=== PATIENT | female | born 1955 | race Caucasian/White ===

== ENCOUNTER 2019-04-13 09:41 | Emergency (ER) | payer OTHER ==
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
[2019-04-13 10:02] VITALS: BP 143/71; PULSE 80; TEMP 97.9; BMI 22.4
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
== END 2019-04-13 10:31 | disposition home or self-care (01) ==
LOC: JER 09:41
DX: S89.81XA Other specified injuries of right lower leg, initial encounter (principal); M25.561 Pain in right knee; W03.XXXA Other fall on same level due to collision with another person, initial encounter; Y93.89 Activity, other specified; Y92.213 High school as the place of occurrence of the external cause; Y99.0 Civilian activity done for income or pay; K21.9 Gastro-esophageal reflux disease without esophagitis; R01.1 Cardiac murmur, unspecified; F17.210 Nicotine dependence, cigarettes, uncomplicated; Z90.49 Acquired absence of other specified parts of digestive tract; Z90.710 Acquired absence of both cervix and uterus; Z88.1 Allergy status to other antibiotic agents
CPT/HCPCS: 73560-TC-RT-FY; 99281-25

== ENCOUNTER 2020-09-29 11:03 | Observation (INO) | payer OTHER ==
[2020-09-29] MEDS ORDERED: ONDANSETRON 4 MG/2 ML VIAL IVPUSH ONE (11:39)
[2020-09-29] MEDS ORDERED: ACETAMINOPHEN INJECTION 100 ML IVPB ONE (11:43)
[2020-09-29] MEDS ORDERED: ONDANSETRON 4 MG/2 ML VIAL ONE (11:44)
[2020-09-29] MEDS ORDERED: SODIUM CHLORIDE 1,000 ML IV SCH ×2 (11:45→18:41)
[2020-09-29 11:58] LABS: VENOUS BASE EXCESS 3.5 mmol/L (-2-2); VENOUS O2 SATURATION 81.9 % (70-80); VENOUS PCO2 25.9 mmHg (38-52); VENOUS PH 7.579 (7.310-7.410)
[2020-09-29 12:03] LABS: BASO % 0.5 % (0-2.0); EOS % 0.2 % (0-4.5); HEMATOCRIT 38.3 % (32.4-45.2); HEMOGLOBIN 13.3 GM/dL (10.7-15.3); LYMPH % 21.1 % (8-40); MCH 33.7 pg (25.7-33.7); MCHC 34.9 g/dl (32.0-36.0); MEAN CELL VOLUME 96.7 fl (80-96); MEAN PLT VOLUME 8.2 fl (7.5-11.1); MONO % 9.6 % (3.8-10.2); NEUT % 68.6 % (42.8-82.8); PLATELET COUNT 462 10^3/uL (134-434); RBC 3.96 M/mm3 (3.60-5.2); RDW 13.5 % (11.6-15.6); WHITE BLOOD COUNT 8.5 K/mm3 (4.0-10.0)
[2020-09-29 12:11] LABS: INR 0.94 (0.83-1.09); PROTHROMBIN TIME (PATIENT) 11.6 SEC (9.7-13.0)
[2020-09-29 12:14] LABS: ACTIVATED PTT 22.2 SECONDS (25.2-36.5)
[2020-09-29 12:28] LABS: CHLORIDE 89 mmol/L (98-107); SODIUM 127 mmol/L (136-145)
[2020-09-29 12:31] LABS: CALCIUM 10.1 mg/dL (8.5-10.1)
[2020-09-29 12:32] LABS: ALBUMIN 4.2 g/dl (3.4-5.0); ANION GAP 16 MMOL/L (8-16); CO2 22 mmol/L (21-32); GLUCOSE,RANDOM 157 mg/dL (74-106)
[2020-09-29 12:34] LABS: SGOT/AST 34 U/L (15-37); SGPT/ALT 37 U/L (13-61)
[2020-09-29 12:35] LABS: CHOLESTEROL 179 mg/dL (50-200); CREATININE 0.9 mg/dL (0.55-1.3); TRIGLYCERIDES 146 mg/dL (0-150)
[2020-09-29] MEDS ORDERED: POTASSIUM CHLORIDE 20 MEQ PREMIX IVPB 100 ML IVPB ONE (12:35)
[2020-09-29 12:36] LABS: BILIRUBIN,TOTAL 0.3 mg/dL (0.2-1); LDL CHOLESTEROL (ONLY SJRH) 51 mg/dL (5-100)
[2020-09-29] MEDS ORDERED: POTASSIUM CHLORIDE ORAL LIQUID 20 MEQ/15 ML PO ONE (12:36)
[2020-09-29 12:37] LABS: ALK PHOS 101 U/L (45-117); HDL CHOLESTEROL 113 mg/dL (40-60)
[2020-09-29 12:39] LABS: LACTIC ACID 2.9 mmol/L (0.4-2.0)
[2020-09-29] MEDS ORDERED: LACTATED RINGERS SOLUTION 1000 ML INFUS.BAG IV ONE (13:06)
[2020-09-29] MEDS ORDERED: POTASSIUM CHLORIDE ORAL LIQUID 20 MEQ/15 ML ONE (13:47)
[2020-09-29] MEDS ORDERED: KCL 10 MEQ IVPB 20 MEQ/200 ML INFUS.BAG IVPB ONE (13:48)
[2020-09-29 15:10] LABS: URINE APPEARANCE CLEAR; URINE BILIRUBIN NEGATIVE (NEGATIVE); URINE COLOR YELLOW; URINE GLUCOSE (UA) NEGATIVE (NEGATIVE); URINE KETONE 1+ (NEGATIVE); URINE LEUK ESTERASE NEGATIVE (NEGATIVE); URINE NITRITE NEGATIVE (NEGATIVE); URINE PROTEIN NEGATIVE (NEGATIVE); URINE UROBILINOGEN 0.2 mg/dL (0.2-1.0)
[2020-09-29] MEDS ORDERED: METOCLOPRAMIDE HCL INJECTION 10 MG/2 ML VIAL IVPUSH PRN (15:29)
[2020-09-29] MEDS ORDERED: ACETAMINOPHEN 325 MG TABLET (FP) ONE (16:35)
[2020-09-29] MEDS: ACETAMINOPHEN 325 MG TABLET (FP) PO PRN ×2 (16:37→22:59)
[2020-09-29 17:21] LABS: COCAINE, UR NEGATIVE (NEGATIVE); METHADONE, UR NEGATIVE (NEGATIVE); URINE AMPHETAMINES NEGATIVE (NEGATIVE); URINE BENZODIAZEPINES NEGATIVE (NEGATIVE)
[2020-09-29 17:22] LABS: OPIATES, URI NEGATIVE (NEGATIVE); PHENCYCLIDINE,URINE NEGATIVE (NEGATIVE)
[2020-09-29 17:24] LABS: URINE BARBITURATES POSITIVE (NEGATIVE)
[2020-09-29 18:02] VITALS: BMI 23.4
[2020-09-29 19:16] LABS: CHLORIDE 95 mmol/L (98-107); SODIUM 132 mmol/L (136-145)
[2020-09-29 19:17] LABS: CALCIUM 9.3 mg/dL (8.5-10.1)
[2020-09-29 19:18] LABS: ANION GAP 9 MMOL/L (8-16); BLOOD UREA NITROGEN 7.5 mg/dL (7-18); CO2 28 mmol/L (21-32); GLUCOSE,RANDOM 122 mg/dL (74-106)
[2020-09-29 19:21] LABS: CREATININE 0.6 mg/dL (0.55-1.3)
[2020-09-29] MEDS ORDERED: PT OWN MED DRAWER 7, Y5N ONE (20:38)
[2020-09-29] MEDS: URSODIOL 300 MG CAPSULE PO SCH (21:16)
[2020-09-29] MEDS ORDERED: FAMOTIDINE 20 MG TABLET PO SCH (22:00)
[2020-09-29] MEDS ORDERED: GABAPENTIN 300 MG CAPSULE PO SCH (22:00)
[2020-09-29] MEDS ORDERED: ATORVASTATIN CA 20 MG TABLET (FP) PO SCH (22:00)
[2020-09-29] MEDS ORDERED: AMITRIPTYLINE HCL 10 MG TABLET PO SCH (22:00)
[2020-09-30 07:36] LABS: BASO % 0.5 % (0-2.0); EOS % 1.3 % (0-4.5); HEMATOCRIT 36.6 % (32.4-45.2); HEMOGLOBIN 12.6 GM/dL (10.7-15.3); MCH 33.6 pg (25.7-33.7); MCHC 34.5 g/dl (32.0-36.0); MEAN CELL VOLUME 97.1 fl (80-96); MEAN PLT VOLUME 7.1 fl (7.5-11.1); MONO % 10.8 % (3.8-10.2); NEUT % 64.4 % (42.8-82.8); PLATELET COUNT 418 10^3/uL (134-434); RBC 3.77 M/mm3 (3.60-5.2); RDW 13.4 % (11.6-15.6); WHITE BLOOD COUNT 6.4 K/mm3 (4.0-10.0)
[2020-09-30 07:57] LABS: ALBUMIN 3.7 g/dl (3.4-5.0); MAGNESIUM 1.8 mg/dL (1.8-2.4)
[2020-09-30 08:00] LABS: CREATININE 0.6 mg/dL (0.55-1.3)
[2020-09-30 08:01] LABS: BILIRUBIN,TOTAL 0.2 mg/dL (0.2-1); TOT PROT 6.5 g/dl (6.4-8.2)
[2020-09-30] MEDS: ACETAMINOPHEN 325 MG TABLET (FP) PO PRN (08:15)
[2020-09-30] MEDS: URSODIOL 300 MG CAPSULE PO SCH ×2 (09:06→09:12)
[2020-09-30] MEDS: ENOXAPARIN NA (PORCINE) 40 MG/0.4 ML DISP.SYRIN SQ SCH ×2 (09:07→09:12)
[2020-09-30] MEDS ORDERED: PT OWN MED DRAWER 7, Y5N ONE (09:15)
[2020-09-30 09:20] VITALS: BP 134/68; PULSE 79; TEMP 98
[2020-09-30] MEDS ORDERED: PANTOPRAZOLE 40 MG TABLET PO SCH (10:00)
== END 2020-09-30 15:10 | disposition home or self-care (01) ==
LOC: JER 11:03 → INTOOBSV 13:04 → JERBED 13:04 → J4W 17:01
PROC: 3E033GC Introduction of Other Therapeutic Substance into Peripheral Vein, Percutaneous Approach (ICD-10-PCS; principal; 2020-09-29)
PROC: 3E0337Z Introduction of Electrolytic and Water Balance Substance into Peripheral Vein, Percutaneous Approach (ICD-10-PCS; 2020-09-29)
DX: I34.1 Nonrheumatic mitral (valve) prolapse (principal); I10 Essential (primary) hypertension; E78.5 Hyperlipidemia, unspecified; R01.1 Cardiac murmur, unspecified; Z90.49 Acquired absence of other specified parts of digestive tract; Z87.891 Personal history of nicotine dependence; R63.0 Anorexia; Z29.9 Encounter for prophylactic measures, unspecified; E87.1 Hypo-osmolality and hyponatremia; E87.6 Hypokalemia; Z88.8 Allergy status to other drugs, medicaments and biological substances
CPT/HCPCS: 36415; 70450-TC; 71046-TC-FY; 80048; 80053; 80061; 80307; 81003; 82010; 82306; 82550; 82803; 82962; 83605; 83721; 83735; 84100; 84436; 84439; 84443; 84484; 85025; 85379; 85610; 85730; 86850; 86900; 86901; 93005; 93010; 93880-TC; 96361; 96374; 96375; 97116-GP; 97161-GP; 99285-25; C9803; G0378; U0003; U0005